=== PATIENT | male | born 1945 | race African-American/Black ===

== ENCOUNTER 2020-06-14 15:56 | Observation (INO) ==
[2020-06-14] MEDS ORDERED: Naloxone 0.4 MG/ML INJ IVP PRN (17:35)
[2020-06-14] MEDS ORDERED: Ondansetron 4 MG/2 ML VIAL IVP PRN (17:35)
[2020-06-14] MEDS ORDERED: Perflutren Lipid Microsphere 1.3 ML in 0.9 % Sodium Chloride 8.7 ML IVP PRN (17:38)
[2020-06-14] MEDS: *HR* Heparin 5,000 UNIT/ML VIAL SQ SCH (18:27)
[2020-06-14 18:40] LABS: Basophils % 0.6 %; Eosinophils % 5.5 %; Hematocrit 50.1 % (37.5-50.1); Immature Granulocytes % 0.2 % (0-4)
[2020-06-14 18:42] LABS: Eosinophils # 0.3 K/mcL (0.0-0.6); Hemoglobin 16.1 g/dL (12.9-16.9); Immature Platelets 12.4 % (1.1-6.1); Lymphocytes # 0.8 K/mcL (0.6-4.6); Lymphocytes % 15.5 %; Mean Corpuscular HGB Conc 32.1 g/dL (31.6-35.5); Mean Corpuscular Hemoglobin 30.9 pg (28.0-33.3); Mean Corpuscular Volume 96.2 fL (83.0-100.0); Mean Platelet Volume 12.9 fL (9.4-12.4); Monocytes # 0.5 K/mcL (0.0-1.3); Monocytes % 10.2 %; Neutrophils # 3.6 K/mcL (1.6-8.9); Platelet Count 128 K/mcL (140-400); Red Blood Count 5.21 M/mcL (4.19-5.50); Red Cell Distribution Width 12.3 % (11.5-14.5); White Blood Count 5.3 K/mcL (4.3-11.1)
[2020-06-14 19:02] LABS: BUN/Creatinine Ratio 15 (6-26); Blood Urea Nitrogen 18 mg/dL (8-23); Calcium 8.6 mg/dL (8.6-10.3); Carbon Dioxide 29 mEq/L (23-29); Chloride 104 mEq/L (98-107); Glucose 117 mg/dL (70-105); Osmolality,Calculated 289 (280-300); Potassium 4.6 mEq/L (3.5-5.1); Sodium 138 mEq/L (136-145); eGFR For African Americans > 60 (> 60); eGFR For Non-African Americans 59 (> 60)
[2020-06-14 19:09] LABS: Phosphorous 3.3 mg/dL (2.7-4.5); Troponin I < 0.03 ng/mL (< 0.04)
[2020-06-14] MEDS: Famotidine 20 MG TABLET PO SCH (20:19)
[2020-06-15] MEDS ORDERED: Melatonin 3 MG TABLET PO ONE ×2 (01:04→21:58)
[2020-06-15 04:36] LABS: Mean Platelet Volume 13.1 fL (9.4-12.4); Red Cell Distribution Width 12.3 % (11.5-14.5)
[2020-06-15 04:38] LABS: Basophils % 0.5 %; Eosinophils # 0.3 K/mcL (0.0-0.6); Eosinophils % 6.2 %; Hematocrit 47.5 % (37.5-50.1); Hemoglobin 15.1 g/dL (12.9-16.9); Immature Granulocytes % 0.7 % (0-4); Immature Platelets 13.5 % (1.1-6.1); Lymphocytes % 17.9 %; Mean Corpuscular HGB Conc 31.8 g/dL (31.6-35.5); Mean Corpuscular Hemoglobin 30.3 pg (28.0-33.3); Mean Corpuscular Volume 95.2 fL (83.0-100.0); Monocytes # 0.6 K/mcL (0.0-1.3); Monocytes % 10.3 %; Platelet Count 125 K/mcL (140-400); Red Blood Count 4.99 M/mcL (4.19-5.50); Segmented Neutrophils % 64.4 %; White Blood Count 5.5 K/mcL (4.3-11.1)
[2020-06-15 04:39] LABS: Neutrophils # 3.5 K/mcL (1.6-8.9)
[2020-06-15 04:58] LABS: BUN/Creatinine Ratio 18 (6-26); Blood Urea Nitrogen 22 mg/dL (8-23); Calcium 8.4 mg/dL (8.6-10.3); Carbon Dioxide 28 mEq/L (23-29); Chloride 105 mEq/L (98-107); Glucose 104 mg/dL (70-105); Magnesium 1.9 mg/dL (1.6-2.6); Osmolality,Calculated 292 (280-300); Phosphorous 3.2 mg/dL (2.7-4.5); Potassium 4.3 mEq/L (3.5-5.1); Sodium 139 mEq/L (136-145); Troponin I < 0.03 ng/mL (< 0.04); eGFR For African Americans > 60 (> 60); eGFR For Non-African Americans 57 (> 60)
[2020-06-15] MEDS: *HR* Heparin 5,000 UNIT/ML VIAL SQ SCH ×2 (05:33→18:01)
[2020-06-15] MEDS ORDERED: Regadenoson 0.4 MG/5 ML SYRINGE IVP ONE (07:41)
[2020-06-15] MEDS: Famotidine 20 MG TABLET PO SCH ×2 (09:59→21:13)
[2020-06-15] MEDS: Aspirin 81 MG TAB.CHEW PO SCH (09:59)
[2020-06-16 04:01] LABS: Hematocrit 49.1 % (37.5-50.1); Hemoglobin 15.9 g/dL (12.9-16.9); Immature Granulocytes % 0.2 % (0-4); Lymphocytes % 18.5 %; Mean Corpuscular HGB Conc 32.4 g/dL (31.6-35.5); Mean Corpuscular Hemoglobin 30.6 pg (28.0-33.3); Mean Corpuscular Volume 94.4 fL (83.0-100.0); Mean Platelet Volume 12.4 fL (9.4-12.4); Monocytes % 9.2 %; Platelet Count 125 K/mcL (140-400); Red Cell Distribution Width 12.2 % (11.5-14.5); Segmented Neutrophils % 65.3 %; White Blood Count 5.4 K/mcL (4.3-11.1)
[2020-06-16 04:02] LABS: Basophils % 0.4 %; Eosinophils # 0.3 K/mcL (0.0-0.6); Eosinophils % 6.4 %; Monocytes # 0.5 K/mcL (0.0-1.3); Neutrophils # 3.5 K/mcL (1.6-8.9)
[2020-06-16 04:20] LABS: BUN/Creatinine Ratio 15 (6-26); Blood Urea Nitrogen 18 mg/dL (8-23); Calcium 8.5 mg/dL (8.6-10.3); Carbon Dioxide 26 mEq/L (23-29); Chloride 104 mEq/L (98-107); Glucose 100 mg/dL (70-105); Osmolality,Calculated 286 (280-300); Potassium 4.3 mEq/L (3.5-5.1); Sodium 137 mEq/L (136-145); eGFR For African Americans > 60 (> 60); eGFR For Non-African Americans 59 (> 60)
[2020-06-16] MEDS: *HR* Heparin 5,000 UNIT/ML VIAL SQ SCH ×2 (05:59→17:30)
[2020-06-16] MEDS: Famotidine 20 MG TABLET PO SCH ×2 (07:48→20:38)
[2020-06-16] MEDS: Aspirin 81 MG TAB.CHEW PO SCH (07:48)
[2020-06-16 09:13] LABS: Chol/HDL Ratio 3.9 (0-4.9); Cholesterol 165 mg/dL (< 200); HDL Cholesterol 42 mg/dL (40-59); LDL Cholesterol,Calculated 101 mg/dL (< 100); Triglycerides 110 mg/dL (< 150)
[2020-06-16 09:27] LABS: Estimated Average Glucose 126 mg/dl
[2020-06-16] MEDS: Finasteride 5 MG TABLET PO SCH (09:33)
[2020-06-17] MEDS: *HR* Heparin 5,000 UNIT/ML VIAL SQ SCH ×2 (05:38→17:13)
[2020-06-17 07:02] LABS: Basophils % 0.5 %; Eosinophils # 0.3 K/mcL (0.0-0.6); Eosinophils % 5.9 %; Hematocrit 50.7 % (37.5-50.1); Hemoglobin 16.3 g/dL (12.9-16.9); Immature Granulocytes % 0.3 % (0-4); Lymphocytes # 1.1 K/mcL (0.6-4.6); Lymphocytes % 19.2 %; Mean Corpuscular HGB Conc 32.1 g/dL (31.6-35.5); Mean Corpuscular Hemoglobin 30.5 pg (28.0-33.3); Mean Corpuscular Volume 94.9 fL (83.0-100.0); Mean Platelet Volume 12.7 fL (9.4-12.4); Monocytes # 0.7 K/mcL (0.0-1.3); Monocytes % 12.3 %; Neutrophils # 3.6 K/mcL (1.6-8.9); Platelet Count 128 K/mcL (140-400); Red Blood Count 5.34 M/mcL (4.19-5.50); Red Cell Distribution Width 12.5 % (11.5-14.5); Segmented Neutrophils % 61.8 %; White Blood Count 5.8 K/mcL (4.3-11.1)
[2020-06-17 07:20] LABS: BUN/Creatinine Ratio 14 (6-26); Blood Urea Nitrogen 20 mg/dL (8-23); Calcium 8.9 mg/dL (8.6-10.3); Carbon Dioxide 28 mEq/L (23-29); Chloride 104 mEq/L (98-107); Glucose 102 mg/dL (70-105); Osmolality,Calculated 293 (280-300); Phosphorous 3.4 mg/dL (2.7-4.5); Potassium 4.2 mEq/L (3.5-5.1); Sodium 140 mEq/L (136-145); eGFR For African Americans > 60 (> 60); eGFR For Non-African Americans 50 (> 60)
[2020-06-17] MEDS: Finasteride 5 MG TABLET PO SCH (08:26)
[2020-06-17] MEDS: Aspirin 81 MG TAB.CHEW PO SCH (08:27)
[2020-06-17] MEDS: Famotidine 20 MG TABLET PO SCH ×2 (08:27→20:21)
[2020-06-17] MEDS ORDERED: 0.9 % Sodium Chloride 1,000 ML IVC SCH (08:45)
[2020-06-17] MEDS ORDERED: 0.9 % Sodium Chloride 2,000 ML ONE (09:01)
[2020-06-17] MEDS ORDERED: ISOVUE-370 200 ML INFUS..BTL ONE (09:01)
[2020-06-17] MEDS ORDERED: Heparin 1,000 UNITS/500 mL 500 ML ONE (09:01)
[2020-06-17] MEDS ORDERED: *HR* Heparin 10,000 UNIT/10 ML VIAL ONE (09:01)
[2020-06-17] MEDS ORDERED: Nitroglycerin 1,000 MCG/10 ML VIAL IV ONE (09:01)
[2020-06-17] MEDS ORDERED: *HR* Midazolam HCl 2 MG/2 ML VIAL ONE (09:39)
[2020-06-17] MEDS ORDERED: *HR* FentaNYL (PF) 100 MCG/2 ML VIAL ONE (09:39)
[2020-06-17] MEDS ORDERED: Isosorbide MONOnitrate (24 HR) 30 MG TAB.ER.24H PO SCH (11:00)
[2020-06-17] MEDS ORDERED: amLODIPine 5 MG TABLET PO SCH (11:19)
[2020-06-17 14:32] LABS: BUN/Creatinine Ratio 16 (6-26); Blood Urea Nitrogen 21 mg/dL (8-23); Calcium 8.7 mg/dL (8.6-10.3); Carbon Dioxide 21 mEq/L (23-29); Chloride 108 mEq/L (98-107); Glucose 122 mg/dL (70-105); Osmolality,Calculated 290 (280-300); Potassium 5.2 mEq/L (3.5-5.1); Sodium 138 mEq/L (136-145); eGFR For African Americans > 60 (> 60); eGFR For Non-African Americans 52 (> 60)
[2020-06-17] MEDS: 0.9 % Sodium Chloride 1,000 ML IVC SCH (17:13)
[2020-06-17] MEDS ORDERED: Melatonin 3 MG TABLET PO PRN (22:55)
[2020-06-18] MEDS: 0.9 % Sodium Chloride 1,000 ML IVC SCH (01:03)
[2020-06-18] MEDS: *HR* Heparin 5,000 UNIT/ML VIAL SQ SCH (05:36)
[2020-06-18 06:35] LABS: BUN/Creatinine Ratio 16 (6-26); Blood Urea Nitrogen 20 mg/dL (8-23); Calcium 8.1 mg/dL (8.6-10.3); Carbon Dioxide 24 mEq/L (23-29); Chloride 107 mEq/L (98-107); Glucose 108 mg/dL (70-105); Magnesium 1.8 mg/dL (1.6-2.6); Osmolality,Calculated 287 (280-300); Phosphorous 3.1 mg/dL (2.7-4.5); Potassium 4.2 mEq/L (3.5-5.1); Sodium 137 mEq/L (136-145); eGFR For African Americans > 60 (> 60); eGFR For Non-African Americans 57 (> 60)
[2020-06-18] MEDS ORDERED: amLODIPine 5 MG TABLET PO SCH (09:00)
[2020-06-18 09:13] VITALS: BP 105/61
== END 2020-06-18 10:32 | disposition home or self-care (01) ==
LOC: 3BNU → SUATTDRO 17:09
PROVIDERS: ADMIT Family Medicine; ATTEND Internal Medicine

== ENCOUNTER 2022-01-01 13:32 | Observation (INO) ==
[2022-01-01] MEDS ORDERED: Aspirin 325 MG TABLET PO ONE (14:19)
[2022-01-01 14:24] LABS: Basophils % 0.3 %; Eosinophils # 0.4 K/mcL (0.0-0.6); Eosinophils % 3.8 %; Hematocrit 50.4 % (37.5-50.1); Immature Granulocytes % 0.3 % (0-4); Lymphocytes # 0.8 K/mcL (0.6-4.6); Lymphocytes % 7.3 %; Mean Corpuscular HGB Conc 31.7 g/dL (31.6-35.5); Mean Corpuscular Volume 94.4 fL (83.0-100.0); Mean Platelet Volume 12.5 fL (9.4-12.4); Monocytes # 1.2 K/mcL (0.0-1.3); Monocytes % 11.4 %; Platelet Count 159 K/mcL (140-400); Red Blood Count 5.34 M/mcL (4.19-5.50); Red Cell Distribution Width 12.9 % (11.5-14.5); Segmented Neutrophils % 76.9 %; White Blood Count 10.3 K/mcL (4.3-11.1)
[2022-01-01 14:39] LABS: BUN/Creatinine Ratio 12 (6-26); Blood Urea Nitrogen 14 mg/dL (8-23); Calcium 9.5 mg/dL (8.6-10.3); Carbon Dioxide 29 mEq/L (23-29); Chloride 101 mEq/L (98-107); Glucose 107 mg/dL (70-105); Osmolality,Calculated 287 (280-300); Potassium 4.7 mEq/L (3.5-5.1); Sodium 138 mEq/L (136-145)
[2022-01-01 14:47] LABS: Troponin I < 0.03 ng/mL (< 0.04)
[2022-01-01] MEDS ORDERED: Naloxone 0.4 MG/ML INJ IVP PRN (15:23)
[2022-01-01] MEDS ORDERED: Ondansetron 4 MG/2 ML VIAL IVP PRN (15:23)
[2022-01-01] MEDS: Nitroglycerin 0.4 MG TAB.SUBL SL SCH ×2 (15:23→21:46)
[2022-01-01 23:22] LABS: Adenovirus Not Detected (Not Detect); Bordetella Pertussis Not Detected (Not Detect); Chlamydophila pneumoniae Not Detected (Not Detect); Coronavirus 229E Not Detected (Not Detect); Coronavirus HKU1 Not Detected (Not Detect); Coronavirus NL63 Not Detected (Not Detect); Coronavirus OC43 Not Detected (Not Detect); Human Metapneumovirus Not Detected (Not Detect); Human Rhinovirus/Enterovirus Not Detected (Not Detect); Influenza A Subtype 2009 H1 Not Detected (Not Detect); Influenza B Not Detected (Not Detect); Mycoplasma pneumoniae Not Detected (Not Detect); Parainfluenza Virus 1 Not Detected (Not Detect); Parainfluenza Virus 2 Not Detected (Not Detect); Parainfluenza Virus 3 Not Detected (Not Detect); Parainfluenza Virus 4 Not Detected (Not Detect); Respiratory Syncytial Virus Not Detected (Not Detect); SARS-CoV-2 Not Detected (Not Detect)
[2022-01-01] MEDS ORDERED: Menthol 1 EACH LOZENGE PO PRN (23:42)
[2022-01-02 02:48] LABS: Basophils % 0.3 %; Eosinophils # 0.2 K/mcL (0.0-0.6); Eosinophils % 2.3 %; Hematocrit 46.6 % (37.5-50.1); Hemoglobin 14.9 g/dL (12.9-16.9); Immature Granulocytes % 0.2 % (0-4); Lymphocytes # 0.6 K/mcL (0.6-4.6); Lymphocytes % 5.6 %; Mean Corpuscular Hemoglobin 29.6 pg (28.0-33.3); Mean Corpuscular Volume 92.6 fL (83.0-100.0); Mean Platelet Volume 12.5 fL (9.4-12.4); Monocytes # 1.3 K/mcL (0.0-1.3); Monocytes % 11.9 %; Neutrophils # 8.4 K/mcL (1.6-8.9); Platelet Count 153 K/mcL (140-400); Red Blood Count 5.03 M/mcL (4.19-5.50); Segmented Neutrophils % 79.7 %; White Blood Count 10.5 K/mcL (4.3-11.1)
[2022-01-02] MEDS ORDERED: Regadenoson 0.4 MG/5 ML SYRINGE IVP ONE (06:36)
[2022-01-02 06:54] VITALS: BP 120/80; PULSE 95; TEMP 98.6; O2SAT 93
[2022-01-02] MEDS ORDERED: Finasteride 5 MG TABLET PO SCH (09:00)
[2022-01-02] MEDS ORDERED: Metoprolol XL (24 HR) Succ 50 MG TAB.ER.24H PO SCH (09:00)
[2022-01-02] MEDS ORDERED: predniSONE 20 MG TABLET PO SCH (09:00)
[2022-01-02] MEDS ORDERED: Doxycycline 100 MG CAPSULE PO SCH (09:00)
[2022-01-02] MEDS ORDERED: Aspirin 81 MG TAB.CHEW PO SCH (09:00)
[2022-01-02] MEDS ORDERED: amLODIPine 5 MG TABLET PO SCH (09:00)
== END 2022-01-02 10:39 | disposition home or self-care (01) ==
LOC: 3BNU 13:32 → EMEROOARM 13:32 → SUATTDRO 15:29 → 3BNU 16:41
PROVIDERS: ADMIT Internal Medicine; ATTEND Internal Medicine